=== PATIENT | female | born 1970 ===

== ENCOUNTER 2017-10-10 05:17 | Day surgery (SDC) | payer OTHER ==
[2017-10-09 13:11] VITALS: BMI 18.0
[~2017-10-10] VITALS: Ht 162.6 cm; Wt 48.6 kg
[~2017-10-10 05:17] MED LIST: ALBU18002 INH; CITA20TA9 PO; IBUP1CAP9 PEG; ONDA4TAB46 PO; OXYC-57 PO; SULF800T23 PO
[2017-10-10 05:35] VITALS: BP 100/62; PULSE 81; TEMP 36.4; O2SAT 97; Ht 162.6 cm; Wt 48.6 kg
[2017-10-10] MEDS ORDERED: CEFAZOLIN 1000MG IV PUSH 5 ML IV SCH (06:00)
[2017-10-10] MEDS ORDERED: LACTATED RINGER'S 1000ML 1,000 ML IV SCH (06:00)
[2017-10-10] MEDS ORDERED: PROPOFOL IV EMULSION 10 MG/ML 20 ML VIAL IV ONE (06:45)
[2017-10-10] MEDS ORDERED: LIDOCAINE HCL 2% 2 ML VIAL (20MG/ML) ONE (06:45)
[2017-10-10] MEDS ORDERED: FENTANYL CITRATE INJ 50 MCG/1 ML 2 ML VIAL ONE (06:45)
[2017-10-10] MEDS ORDERED: DEXAMETHASONE SOD INJ 4 MG/ML VIAL ONE (06:45)
[2017-10-10] MEDS ORDERED: ONDANSETRON INJ 2 MG/ML 2 ML VIAL ONE (06:45)
[2017-10-10] MEDS ORDERED: MIDAZOLAM HCL 1 MG/ML 2ML VIAL ONE (06:46)
[2017-10-10] MEDS ORDERED: CEFAZOLIN SOD 1000MG/5 ML IV PUSH IV ONE (07:06)
--- NOTE | 2017-10-10 07:13 | History and Physical ---
History & Physical Date Oct 10, 2017. Chief Complaint left upper ureteral stone with obstruction History of Present Illness The patient is a 47 year old female with complaints of left upper ureteral stone. She was in ER [place] yesterday. She had a ct showing an 8mm left upper ureteral stone. This is her first stone. Her urine has white and red cells and there is a bit of stranding. She was placed on bactrim but urine culture is pending. No fevers. 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 Allergies Coded Allergies: Doxycycline (Verified Allergy, Unknown, GI UPSET, 10/10/17) Metoclopramide (Verified Allergy, Unknown, MUSCLES IN LEGS GOT TIGHT, 10/10) Home Medications Scheduled Albuterol Sulfate (Proair Respiclick), 2 PUFFS INH PRN Citalopram Hydrobromide (Celexa), 20 MG PO QAM Ibuprofen (Ibuprofen), 600-880 MG PEG PRN Sulfa/Trimethoprim (Bactrim Ds 800MG/160MG), 1 TAB PO BID Scheduled PRN Ondansetron Hcl (Zofran), 4 MG PO Q8H PRN for N Oxycodone/Acetaminophen 5MG/325MG (Percocet 5MG/325MG), 1 TABLET PO Q6H PRN for Pain Physical Examination Skin: warm/dry, no rash Eyes: normal inspection, EOMI, sclerae normal ENT: normal ENT inspection Head: normocephalic Neck: supple, no adenopathy Respiratory/Chest: lungs clear, normal breath sounds, no respiratory distress Cardiovascular: regular rate, rhythm Extremities: normal inspection, normal range of motion (no edema, no calf pain) Neurologic/Psych: no motor/sensory deficits, alert, oriented x 3 Diagnosis left upper ureteral stone with colic Plan of Treatment I described options of observation to try to pass stone stent today with eswl in a few weeks cysto left ureteroscopy today with laser litho, basket stone extraction stent placement I described success rates and complications. She opts for ureteroscopy with laser. 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
[2017-10-10] MEDS ORDERED: CONRAY 30% 150ML BOTTLE ONE (07:14)
[2017-10-10] MEDS ORDERED: BELLADONNA/OPIUM SUPP 60 MG SUPP PR ONE (08:08)
--- NOTE | 2017-10-10 08:25 | [facility] Operative Report ---
Operative Report Operative Date Oct 10, 2017. Pre-Operative Diagnosis left upper ureteral stone with colic Post-Operative Diagnosis left upper ureteral stone with colic Procedure(s) Performed Cystoscopy, Left Ureteroscopy, Laser Lithotripsy, Basket Stone Extration; Left Ureteral Stent Placement Surgeon Dr. Charlee Benavides [employer] Tr[employer] Surgeon(s) none Estimated Blood Loss 1mL Findings radio-lucent upper ureteral stone Fluids 800mL Specimens Microbiology: 1. Urine for culture 2. Left upper ureteral stone fragments Permanent Specimens: A: Left Ureteral Stone for chemical analysis Drains 6 Fr 24 centimeter double J stent Anesthesia LMA Complication(s) None Disposition Recovery Room / PACU Indications Large left upper ureteral stone with colic. Unlikely to pass. Description of Procedure Patient was given general LMA anesthesia and placed in lithotomy position. Her genitals were prepped and draped in sterile fashion. Time out held with team. I placed a 21 fr rigid cystoscope to bladder. The urethra is unremarkable. The UOs are slit shape normal location. Urine is medium yellow and the bladder is not inflamed. I placed a stiff wire up left ureter and met medium resistance at the upper ureter in the expected location of the stone. Wire then passed to upper pole of left kidney. Efflux from left uo increased and was slightly cloudy. I am uncertain if this is milk of calcium or white cells. She has not had UTI symptoms so I will proceed. I did send a new urine for culture. I used a dual lumen cath to calibrate the distal UO. I placed a Bentson wire to the kidney. I passed a flexible ureteroscope over the second wire to the upper ureter. The stone has been pushed into the renal pelvis. I can see a red rim in the upper ureter where the stone had been previously stuck. I used a 200 micron laser on dusting settings to fragment the stone in the kidney. It is a soft crystalline bowie stone and fragments very easily. I used a 2.4 fr tipless basket to extract 6 pieces in turn. I then placed a 24 centimeter 6 Fr double J stent easily. I left bladder empty and concluded case. I placed a belladonna and opium suppository for post-op pain. She transferred to recovery under my escort, in stable condition. Plan: Home today Pyridium for dysuria x 3 days flomax daily oral pain meds as needed continue bactrim until the ER urine culture is finalized. ASA 2 clean contaminated case 20 seconds fluoro ancef antibiotic retail presentation specialist I attest to the content of the Intraoperative Record and any orders documented therein. Any exceptions are noted below.
[2017-10-10] MEDS ORDERED: PHEN-775 PO (08:26)
[2017-10-10] MEDS ORDERED: TAMS0.4C38 PO (08:26)
--- NOTE | 2017-10-10 08:30 | Discharge Instructions ---
Discharge Instructions Date of Service Oct 10, 2017. Admission Reason for Admission: left upper ureteral Stone Discharge Discharge Diagnosis / Problem: left upper ureteral stone Discharge Goals Goal(s): Decrease discomfort, Improve disease control Activity Recommendations Activity Limitations: resume your previous activity Lifting Limitations: none Exercise/Sports Limitations: none May Resume Sexual Activity: when tolerated Shower/Bathe: no limitations Driving or Machine Use: resume 1 day after discharge . Instructions / Follow-Up Instructions / Follow-Up you will have bladder and kidney pain for 3-5 days you will have blood in urine until stent is removed. fevers over 100F are not normal and you should come to ER to get iv antibiotics if you fever stent will be removed in the [facility] office in one week Current Hospital Diet Patient's current hospital diet: Discharge Diet Recommended Diet: Regular Diet Fluid Restriction: None Procedures Procedures Performed: Cystoscopy, Left Ureteroscopy, Laser Lithotripsy, Basket Stone Extration; Left Ureteral Stent Placement Pending Studies Studies pending at discharge: yes List of pending studies: stone analysis urine culture Medical Emergencies . Who to Call and When: Medical Emergencies: If at any time you feel your situation is an emergency, please call 911 immediately. . Non-Emergent Contact Non-Emergency issues call your: Urologist ([phone]) Call Non-Emergent contact if: temperature is above 100.5 . . "Provider Documentation" section prepared by Eufemia Benavides. . VTE Core Measure Inpt VTE Proph given/why not?: SCD's
[2017-10-10] MEDS ORDERED: KETOROLAC TROMETHAMINE 30 MG/ML VIAL IV STA (08:33)
[2017-10-10] MEDS ORDERED: KETOROLAC TROMETHAMINE 30 MG/ML VIAL ONE (08:34)
--- NOTE | 2017-10-10 08:35 | DIAGNOSTIC IMAGING REPORT ---
KUB HISTORY: 47 years-old Female CYSTO, LT STENT status post placement of a left-sided ureteral stent COMPARISON: None available TECHNIQUE: 2 spot fluoroscopic images of the abdomen were obtained utilizing 20.0 seconds fluoroscopy time. FINDINGS: First image demonstrates a left ureteral guidewire with deployment of a stent. The second image demonstrates distal portion of the stent within the region of the urinary bladder. No definite nephrolithiasis or ureteral calculi identified. Indeterminate electronic device projects over the left inguinal region. IMPRESSION: Status post placement of a left ureteral stent which appears to be in satisfactory positioning. The above report was generated using voice recognition software. It may contain grammatical, syntax or spelling errors. Electronically signed by: Vishnu Neal M.D. 10/10/2017 8:34 AM Dictated Date/Time: 10/10/2017 8:32 AM
[2017-10-10] MEDS ORDERED: NALOXONE HCL 0.4 MG/1 ML VIAL/CARP IV PRN (08:45)
[2017-10-10] MEDS ORDERED: ATROPINE SULFATE 0.1 MG/ML 5ML SYR IV PRN (08:45)
[2017-10-10] MEDS ORDERED: FENTANYL CITRATE INJ 50 MCG/1 ML 2 ML VIAL IV PRN (08:45)
[2017-10-10] MEDS ORDERED: EpHEDrine SULFATE INJ 50 MG/ML AMP IV PRN (08:45)
[2017-10-10] MEDS ORDERED: PROMETHAZINE HCL INJ 12.5 MG in SODIUM CHLORIDE 0.9% 50ML 50 ML IV PRN (08:45)
[2017-10-10] MEDS ORDERED: FLUMAZENIL 0.1 MG/1 ML 10 ML VIAL IV PRN (08:45)
[2017-10-10] MEDS ORDERED: ONDANSETRON INJ 2 MG/ML 2 ML VIAL IV PRN (08:45)
--- NOTE | 2017-10-10 08:53 | Anesthesiology Progress Note ---
Anesthesia Post Op Note Date & Time Oct 10, 2017 at 08:52 Vital Signs Pain Intensity: 0 Vital Signs Past 12 Hours Date Time Temp Pulse Resp B/P (MAP) Pulse Ox O2 Delivery O2 Flow Rate FiO2 10/10/17 08:45 36.9 92 16 120/68 98 Oxymask 10 10/10/17 08:35 88 15 123/69 100 Oxymask 10 10/10/17 08:25 36.8 102 16 132/71 100 Oxymask 10 10/10/17 05:35 36.4 81 18 100/62 (75) 97 Room Air Notes Mental Status: alert / awake / arousable, participated in evaluation Pt Amnestic to Procedure: Yes Nausea / Vomiting: adequately controlled Pain: adequately controlled Airway Patency, RR, SpO2: stable & adequate BP & HR: stable & adequate Hydration State: stable & adequate Anesthetic Complications: no major complications apparent
[2017-10-10 09:10] VITALS: BP 107/62; PULSE 104; TEMP 36.6; O2SAT 98
[2017-10-10 09:40] VITALS: BP 112/65; PULSE 97; TEMP 36.6; O2SAT 99
[2017-10-10 10:10] VITALS: BP 117/71; PULSE 96; TEMP 36.5; O2SAT 95
== END 2017-10-10 10:20 | disposition home or self-care (01) ==
LOC: C.ACU 05:17
PROVIDERS: ATTEND Urology
DX: N20.1 Calculus of ureter (principal); Z88.1 Allergy status to other antibiotic agents; Z90.89 Acquired absence of other organs; Z87.891 Personal history of nicotine dependence